=== PATIENT | male | born 1980 | race African-American/Black ===

== ENCOUNTER 2017-09-30 00:38 | Emergency (ER) | payer SELFPAY ==
[~2017-09-30] VITALS: Ht 172.7 cm; Wt 77.0 kg
[2017-09-30 01:01] VITALS: BP 0/0
== END 2017-09-30 00:59 | disposition left against medical advice (07) ==
LOC: ER 00:38
DX: R06.02 Shortness of breath (principal); Z53.21 Procedure and treatment not carried out due to patient leaving prior to being seen by health care provider